=== PATIENT | female | born 1990 | race Caucasian/White ===

== ENCOUNTER 2019-03-12 23:18 | Emergency (ER) | payer OTHER ==
[2019-03-12] MEDS ORDERED: NORMAL SALINE 1000 ML 1,000 ML IV ONE (23:30)
[2019-03-12] MEDS ORDERED: METHYLPREDNISOLONE INJ 125 MG/2 ML SDV IV ONE (23:30)
[2019-03-12] MEDS ORDERED: EPINEPHRINE INJ/PF 1 MG/1 ML AMPULE IM ONE (23:30)
[2019-03-12] MEDS ORDERED: DIPHENHYDRAMINE HCL 50 MG/ML VIAL IV ONE (23:31)
[2019-03-12] MEDS ORDERED: FAMOTIDINE INJ/PF 20 MG/2 ML SDV IV ONE (23:31)
--- NOTE | 2019-03-12 23:33 | ER Document Report ---
ED Medical Screen (RME) - General Chief Complaint: Breathing Difficulty Stated Complaint: DIFFICULTY BREATHING Time Seen by Provider: 03/12/19 23:26 Mode of Arrival: Ambulatory Information source: Patient Notes: Patient states that she was eating pickles and tuna this evening. Patient states that food went down without difficulty. Patient states about 30 minutes after eating she started to feel as though something was in her throat and that she may have throat swelling. Patient states she did vomit one time. Patient states she became very anxious and came here. The patient denies any pruritus or skin rash. Patient does report a tree nut allergy. Patient continually clearing her throat in triage, no obvious facial swelling or swelling to the posterior pharynx. I have greeted and performed a rapid initial assessment of this patient. A comprehensive ED assessment and evaluation of the patient, analysis of test results and completion of the medical decision making process will be conducted by additional ED providers. - Related Data Allergies/Adverse Reactions: No Known Allergies Allergy (Verified 03/12/19 23:24) Physical Exam - Vital signs Vitals: Temp Pulse Resp BP Pulse Ox 98.0 F 122 H 20 120/82 100 03/12/19 23:26 03/12/19 23:26 03/12/19 23:26 03/12/19 23:26 03/12/19 23:26 - General General appearance: Alert, Anxious Notes: Patient continually clearing throat, respirations unlabored Course - Vital Signs Vital signs: Temp Pulse Resp BP Pulse Ox 98.0 F 122 H 20 120/82 100 03/12/19 23:26 03/12/19 23:26 03/12/19 23:26 03/12/19 23:26 03/12/19 23:26
[2019-03-13] MEDS ORDERED: LORAZEPAM INJ 2 MG/1 ML VIAL IV ONE (01:04)
--- NOTE | 2019-03-13 03:37 | RADIOLOGY REPORT (SQ) ---
Neck soft tissue two view on 03/13/2019 at 3:03 AM CLINICAL INDICATION: Sensation of lump in throat COMPARISON: None FINDINGS: The epiglottis and airway is unremarkable. There is no prevertebral soft tissue swelling. There is no radiopaque foreign body. No bony abnormality is noted. IMPRESSION: No acute abnormality.
--- NOTE | 2019-03-13 03:56 | ER Document Report ---
ED General - General Chief Complaint: Difficulty Swallowing Stated Complaint: DIFFICULTY BREATHING Time Seen by Provider: 03/12/19 23:26 Primary Care Provider: SHAYNE COLLINS PA-C [Primary Care Provider] - Follow up as needed Mode of Arrival: Ambulatory TRAVEL OUTSIDE OF THE [place] IN LAST 30 DAYS: No - HPI Notes: Patient is a 29-year-old female who presents emergency department for evaluation of a knot in her throat, difficulty swallowing. She states that she ate dinner. It was tuna, a meal she had had multiple times. She states about a half an ho ur after dinner she started feeling a lump in her throat. She states like she was having difficulty swallowing. At that point she started to get more anxious. She states she felt her lips and hands go numb and tingly. At that point she drove herself to the emergency department for evaluation. She is denying any vomiting. She states her breathing is improved at this time, although she felt short of breath earlier today. She admits that she is been under a great deal of stress as of late. She is currently homeless. She is staying with friends. She has had multiple other stressors. She is not currently on any medications for anxiety. She denies that this sensation started while eating. She has no visual changes. No difficulty speaking. She is moving her arms and legs without difficulty. - Related Data Allergies/Adverse Reactions: tree nut Allergy (Verified 03/12/19 23:40) Home Medications: None Past Medical History - General Information source: Patient - Social History Smoking Status: Current Every Day Smoker Chew tobacco use (# tins/day): No Frequency of alcohol use: Social Drug Abuse: None Family History: Reviewed & Not Pertinent Patient has suicidal ideation: No Patient has homicidal ideation: No Psychiatric Medical History: Reports: Hx Anxiety Review of Systems - Review of Systems Constitutional: No symptoms reported EENT: See HPI Cardiovascular: No symptoms reported Respiratory: No symptoms reported Gastrointestinal: No symptoms reported Genitourinary: No symptoms reported Musculoskeletal: No symptoms reported Skin: No symptoms reported Neurological/Psychological: See HPI Physical Exam - Vital signs Vitals: Temp Pulse Resp BP Pulse Ox 98.0 F 122 H 20 120/82 100 03/12/19 23:26 03/12/19 23:26 03/12/19 23:26 03/12/19 23:26 03/12/19 23:26 - Notes Notes: This is a 29-year-old female who appears her stated age, in no acute distress. She is sitting up in the bed, resting comfortably, handling her own secretions. Vital signs reviewed, please refer to chart. Head is normocephalic, atraumatic. Pupils equal round, reactive to light. Oral mucosa is moist. Pharynx is without erythema or exudate. No edema noted, uvula is midline. Neck is supple without meningismus. Heart is regular rate and rhythm. Lungs are clear to auscultation bilaterally. Abdomen is soft, nontender, normoactive bowel sounds throughout. Extremities without cyanosis, clubbing. Posterior calves are nontender. Peripheral pulses are equal. Skin is warm and dry. Patient is awake, alert, oriented x3. Cranial nerves II - XII are grossly intact without focal neurological deficits. Strength is plus 5 out of 5 bilateral upper and lower extremities. Sensation is intact. Reflexes symmetrical. Intact [id number], rapid alternating movements, [id number]. Course - Re-evaluation Re-evalutation: 03/13/19 03:53 Patient presents emergency department for evaluation of a sensation that there was a "ball" in her throat and difficulty swallowing. The patient has a history of anxiety. She was not eating or drinking when this happened. I do not strongly suspect a foreign body. Her neurological exam is entirely unremarkable otherwise. She has a history of anxiety, and I suspect globus hystericus as the etiology of her symptoms. She was given steroids, she continually cleared her throat, stated that she felt an irritation there. She was also given Ativan. She had moderate improvement in her symptoms, but stated she still felt as if there was a foreign body lodged there. She was sent for soft tissue neck x-rays which were interpreted to be negative. At this point, I believe the patient is stable. She has been sleeping comfortably. She is resting, handling her secretions, no difficulty breathing. She has no neurological deficits. I will send her home to follow-up with primary care. She is to return to the ED with worsening or new concerning symptoms of any sort. - Vital Signs Vital signs: Temp Pulse Resp BP Pulse Ox 98 F 68 16 117/62 100 03/13/19 04:11 03/13/19 04:11 03/13/19 04:11 03/13/19 04:11 03/13/19 04:11 - Diagnostic Test Radiology reviewed: Reports reviewed Radiology results interpreted by me: 03/13/19 03:54 Soft Tissue Neck X-Ray 03/13/19 02:52 IMPRESSION: No acute abnormality. Discharge - Discharge Clinical Impression: Globus hystericus, Anxiety, Stress Dysphagia Qualifiers: Dysphagia type: other dysphagia Qualified Code(s): R13.19 - Other dysphagia Condition: Stable Disposition: HOME, SELF-CARE Instructions: Anxiety ([facility]), Dysphagia ([facility]) Additional Instructions: No clear cause was found for your symptoms tonight. Anxiety can induce this sensation. There was no clear swelling in the soft tissue examination of your neck. Rest. Follow-up with primary care this week. If you develop difficulty seeing or speaking, difficulty moving her arms or legs, difficulty swallowing secretions, or any other new or concerning symptoms, please return immediately to the emergency department for reevaluation. Referrals: SHAYNE COLLINS PA-C [Primary Care Provider] - Follow up as needed
[2019-03-13 04:11] VITALS: BP 117/62
== END 2019-03-13 04:11 | disposition home or self-care (01) ==
LOC: ER 23:18
DX: F45.8 Other somatoform disorders (principal); R13.19 Other dysphagia; F41.9 Anxiety disorder, unspecified; F43.9 Reaction to severe stress, unspecified; F17.200 Nicotine dependence, unspecified, uncomplicated
CPT/HCPCS: 99284; 96361; 96374; 96375; 70360; J2930; J2060; J7030